=== PATIENT | female | born 1995 | race Caucasian/White ===

== ENCOUNTER 2018-10-24 02:14 | Emergency (ER) | payer OTHER ==
[~2018-10-24] VITALS: Ht 172.7 cm; Wt 63.5 kg
[2018-10-24] MEDS ORDERED: KETO10TA2 PO (05:46)
[2018-10-24] MEDS ORDERED: ZITHROMAX500 MG PO (05:46)
[2018-10-24] MEDS ORDERED: MAALOX ADVANCE355 ML PO (05:46)
== END 2018-10-24 06:10 | disposition home or self-care (01) ==
LOC: ER 02:14
DX: J03.80 Acute tonsillitis due to other specified organisms (principal)